=== PATIENT | male | born 1965 | race Caucasian/White ===

== ENCOUNTER 2023-08-20 08:32 | Inpatient (IN) | payer MEDICARE ==
[~2023-08-20] VITALS: Ht 165.1 cm; Wt 70.3 kg
[2023-08-20] MEDS: LEVETIRACETAM (500MG) 1,000 MG in IV NS 0.9% 90 ML IV STA (08:58)
[2023-08-20] MEDS: IV NS 0.9% 1,000 ML BAG IV ONE ×2 (08:58→10:00)
[2023-08-20 09:10] LABS: BASOPHILS # (AUTO) 0.1 K/uL (0.0-0.2); BASOPHILS % (AUTO) 0.6 % (0.0-2.0); EOSINOPHILS # (AUTO) 0.1 K/uL (0.0-0.7); EOSINOPHILS % (AUTO) 1.2 % (0.0-6.0); HEMATOCRIT 51 % (39-51); HEMOGLOBIN 16.2 g/dL (13.5-17.5); LYMPHOCYTES # (AUTO) 4.7 K/uL (0.8-4.8); LYMPHOCYTES % (AUTO) 44.1 % (20.0-44.0); MEAN CORPUSCULAR HEMOGLOBIN 35 PG (26.0-33.0); MEAN CORPUSCULAR HGB CONC 32 g/dl (31.0-36.0); MEAN CORPUSCULAR VOLUME 109 fL (80-96); MONOCYTES % (AUTO) 9.5 % (2.0-12.0); NEUTROPHILS # (AUTO) 4.7 K/uL (1.8-8.9); NEUTROPHILS % (AUTO) 44.6 % (43.0-81.0); PLATELET COUNT (AUTO) 241 K/uL (150-450); RED BLOOD CELL COUNT(AUTO) 4.67 MIL/uL (4.5-6.0); RED CELL DISTRIBUTION WIDTH 14.4 % (11.5-15.0); WHITE BLOOD COUNT (AUTO) 10.6 K/uL (4.3-11.0)
[2023-08-20 09:28] LABS: ALANINE AMINOTRANSFERASE 36 U/L (12-78); ALBUMIN 4.2 g/dL (3.4-5.0); ALCOHOL, BLOOD < 3 mg/dL (0-10); ALKALINE PHOSPHATASE 109 U/L (46-116); ASPARTATE AMINOTRANSFERASE 25 U/L (15-37); BILIRUBIN,DIRECT 0.1 mg/dL (0.0-0.2); BILIRUBIN,TOTAL 0.3 mg/dL (0.2-1.0); CALCIUM, SERUM 9.9 mg/dL (8.5-10.1); CHLORIDE 100 mmol/L (98-107); CREATININE 1.1 mg/dL (0.6-1.3); GLUCOSE 223 mg/dL (74-106); POTASSIUM 3.7 mmol/L (3.5-5.1); SODIUM SERUM 140 mmol/L (136-145); TOTAL PROTEIN, SERUM 7.7 g/dL (6.4-8.2); UREA NITROGEN, BLOOD 11 mg/dL (7-18)
[2023-08-20 09:48] LABS: CARBON DIOXIDE 7 mmol/L (21-32)
[2023-08-20 09:54] LABS: INR 1.06 (0.91-1.10); LACTIC ACID 23.7 mmol/L (0.4-2.0); PARTIAL THROMBOPLASTIN TIME 29.2 SEC (24.3-34.3); PROTHROMBIN TIME 11.2 SECS (9.2-11.1)
[2023-08-20 10:14] LABS: ABG BASE EXCESS -5.7 mmol/L; ABG OXYGEN SATURATION 89.2 % (92.0-98.5); ABG PCO2 36.6 mmHg (35.0-45.0); ABG PH 7.339 (7.350-7.450); ABG PO2 60.4 mmHg (75.0-100.0); ABG TOTAL HEMOGLOBIN 16.1 G/dL (13.5-18.0); MetHb 0.4 % (0.0-1.5); SITE, ABG Right Radial; VENT MODE, BG 3LNC
[2023-08-20] MEDS ORDERED: Z GUARD REMEDY 4 OZ OINT TP PRN (10:30)
[2023-08-20] MEDS ORDERED: MAG HYDROX/AL HYDROX/SIMETH 30 ML UDC PO PRN (10:30)
[2023-08-20] MEDS ORDERED: LORAZEPAM INJ 2 MG/ML VIAL IV PRN (10:30)
[2023-08-20] MEDS ORDERED: ONDANSETRON HCL/PF 4 MG/2 ML VIAL IVP PRN (10:30)
[2023-08-20] MEDS ORDERED: DEXTROSE 50%-WATER 50 ML DISP.SYRIN IV PRN (10:30)
[2023-08-20] MEDS ORDERED: MAGNESIUM HYDROXIDE 30 ML UDC PO PRN (10:30)
[2023-08-20] MEDS: BLOOD SUGAR DIAGNOSTIC 1 EACH STRIP VI SCH (12:00)
[2023-08-20 12:33] LABS: CALCIUM, SERUM 9.1 mg/dL (8.5-10.1); CREATININE 0.9 mg/dL (0.6-1.3)
[2023-08-20] MEDS: IV NS 0.9% 1,000 ML IV PRN (12:57)
[2023-08-20 16:00] VITALS: BP 133/86; TEMP 97.9; O2SAT 96
[2023-08-20 20:00] VITALS: BP 98/64; TEMP 97.9; O2SAT 96
[2023-08-20] MEDS: *INSULIN REGULAR(HUMULIN R)HUM 100 UNIT/ML VIAL SQ PRN (22:42)
[2023-08-21] VITALS: BP 131/87; TEMP 97.9; O2SAT 96
[2023-08-21 04:00] VITALS: BP 138/87; TEMP 98; O2SAT 98
[2023-08-21 07:23] LABS: BASOPHILS % (AUTO) 0.3 % (0.0-2.0); EOSINOPHILS % (AUTO) 0.1 % (0.0-6.0); HEMATOCRIT 41 % (39-51); HEMOGLOBIN 13.7 g/dL (13.5-17.5); LYMPHOCYTES # (AUTO) 1.5 K/uL (0.8-4.8); LYMPHOCYTES % (AUTO) 14.8 % (20.0-44.0); MEAN CORPUSCULAR HEMOGLOBIN 34 PG (26.0-33.0); MEAN CORPUSCULAR HGB CONC 34 g/dl (31.0-36.0); MEAN CORPUSCULAR VOLUME 101 fL (80-96); MONOCYTES # (AUTO) 1.3 K/uL (0.1-1.30); MONOCYTES % (AUTO) 12.9 % (2.0-12.0); NEUTROPHILS # (AUTO) 7.1 K/uL (1.8-8.9); NEUTROPHILS % (AUTO) 71.9 % (43.0-81.0); PLATELET COUNT (AUTO) 204 K/uL (150-450); RED BLOOD CELL COUNT(AUTO) 4.02 MIL/uL (4.5-6.0); RED CELL DISTRIBUTION WIDTH 13.2 % (11.5-15.0); WHITE BLOOD COUNT (AUTO) 9.9 K/uL (4.3-11.0)
[2023-08-21] MEDS: INSULIN REGULAR, HUMAN 100 UNIT/ML 3 ML VIAL SQ PRN (07:52)
[2023-08-21 07:55] LABS: CALCIUM, SERUM 8.9 mg/dL (8.5-10.1); CREATININE 0.9 mg/dL (0.6-1.3); MAGNESIUM 2.3 mg/dL (1.8-2.4); PHOSPHORUS 3.2 mg/dL (2.5-4.9); POTASSIUM 3.9 mmol/L (3.5-5.1)
[2023-08-21 08:00] VITALS: BP 123/85; TEMP 98.6; O2SAT 94
[2023-08-21 12:00] VITALS: BP 123/82; TEMP 98.8; O2SAT 92
[2023-08-21] MEDS ORDERED: LEVETIRACETAM (500MG) 500 MG in IV NS 0.9% 100 ML IV SCH (13:00)
[2023-08-21] MEDS: ASPIRIN 81 MG TAB.CHEW PO SCH (14:34)
[2023-08-21 16:00] VITALS: BP 117/88; TEMP 99.1; O2SAT 92
[2023-08-21] MEDS: PHENYTOIN EXTENDED RELEASE 100 MG CAPSULE PO SCH (17:44)
[2023-08-21 20:00] VITALS: BP 144/92; TEMP 99.7; O2SAT 94
[2023-08-21] MEDS: LEVETIRACETAM (250 MG) 250 MG TABLET PO SCH (21:05)
[2023-08-21] MEDS: ACETAMINOPHEN 325 MG TABLET PO PRN (21:05)
[2023-08-22] VITALS: BP 130/79; TEMP 98.6; O2SAT 95
[2023-08-22 04:00] VITALS: BP 120/74; TEMP 98.6; O2SAT 95
[2023-08-22 07:11] LABS: BASOPHILS % (AUTO) 0.3 % (0.0-2.0); EOSINOPHILS # (AUTO) 0.1 K/uL (0.0-0.7); HEMATOCRIT 36 % (39-51); HEMOGLOBIN 12.3 g/dL (13.5-17.5); LYMPHOCYTES # (AUTO) 1.7 K/uL (0.8-4.8); LYMPHOCYTES % (AUTO) 20.4 % (20.0-44.0); MEAN CORPUSCULAR HEMOGLOBIN 35 PG (26.0-33.0); MEAN CORPUSCULAR HGB CONC 34 g/dl (31.0-36.0); MEAN CORPUSCULAR VOLUME 101 fL (80-96); MONOCYTES # (AUTO) 1.1 K/uL (0.1-1.30); MONOCYTES % (AUTO) 12.9 % (2.0-12.0); NEUTROPHILS # (AUTO) 5.4 K/uL (1.8-8.9); NEUTROPHILS % (AUTO) 65.4 % (43.0-81.0); PLATELET COUNT (AUTO) 174 K/uL (150-450); RED BLOOD CELL COUNT(AUTO) 3.54 MIL/uL (4.5-6.0); RED CELL DISTRIBUTION WIDTH 13.3 % (11.5-15.0); WHITE BLOOD COUNT (AUTO) 8.2 K/uL (4.3-11.0)
[2023-08-22 07:20] LABS: CREATININE 0.9 mg/dL (0.6-1.3); POTASSIUM 3.9 mmol/L (3.5-5.1)
[2023-08-22 08:00] VITALS: BP 130/78; TEMP 98.6; O2SAT 96
[2023-08-22] MEDS: PHENYTOIN EXTENDED RELEASE 100 MG CAPSULE PO SCH (09:02)
[2023-08-22] MEDS ORDERED: phenytoin SODIUM IV 500 MG in IV NS 0.9% 50 ML IV SCH (11:30)
[2023-08-22 12:00] VITALS: BP 144/90; TEMP 98.6; O2SAT 97
[2023-08-22] MEDS: phenytoin SODIUM IV 500 MG in IV NS 0.9% 50 ML IV ONE (12:30)
[2023-08-22 16:00] VITALS: BP 146/96; TEMP 99.7; O2SAT 95
[2023-08-22 20:00] VITALS: BP 143/94; TEMP 98.8; O2SAT 97
[2023-08-23] VITALS: BP 131/94; TEMP 98.4; O2SAT 96
[2023-08-23] MEDS: IV NS 0.9% 1,000 ML IV PRN
[2023-08-23 04:00] VITALS: BP 140/95; TEMP 98.4; O2SAT 98
[2023-08-23 07:02] LABS: BASOPHILS % (AUTO) 0.6 % (0.0-2.0); EOSINOPHILS # (AUTO) 0.2 K/uL (0.0-0.7); EOSINOPHILS % (AUTO) 2.6 % (0.0-6.0); HEMATOCRIT 36 % (39-51); HEMOGLOBIN 12.5 g/dL (13.5-17.5); LYMPHOCYTES # (AUTO) 1.7 K/uL (0.8-4.8); LYMPHOCYTES % (AUTO) 27.3 % (20.0-44.0); MEAN CORPUSCULAR HEMOGLOBIN 35 PG (26.0-33.0); MEAN CORPUSCULAR HGB CONC 34 g/dl (31.0-36.0); MEAN CORPUSCULAR VOLUME 102 fL (80-96); MONOCYTES # (AUTO) 0.8 K/uL (0.1-1.30); NEUTROPHILS # (AUTO) 3.4 K/uL (1.8-8.9); NEUTROPHILS % (AUTO) 56.5 % (43.0-81.0); PLATELET COUNT (AUTO) 166 K/uL (150-450); RED BLOOD CELL COUNT(AUTO) 3.59 MIL/uL (4.5-6.0); RED CELL DISTRIBUTION WIDTH 13.3 % (11.5-15.0)
[2023-08-23 07:28] LABS: CREATININE 0.6 mg/dL (0.6-1.3); POTASSIUM 3.8 mmol/L (3.5-5.1)
[2023-08-23 08:14] VITALS: BP 150/94; TEMP 98.4; O2SAT 96
[2023-08-23 12:12] VITALS: BP 114/81; TEMP 98.4; O2SAT 98
[2023-08-23] MEDS ORDERED: ASPI-1169 PO (12:58)
[2023-08-23] MEDS ORDERED: LEVE250T2 PO (12:58)
[2023-08-23] MEDS ORDERED: PHEN100C4 PO ×2 (12:58)
== END 2023-08-23 13:43 | DRG 100 ==
LOC: ER 09:04 → TELE1 14:17
PROVIDERS: ADMIT Internal Medicine; ATTEND Nurse Practitioner Acute Care
PROC: 05HB33Z Insertion of Infusion Device into Right Basilic Vein, Percutaneous Approach (ICD-10-PCS; principal; 2023-08-20)
PROC: B54MZZA Ultrasonography of Right Upper Extremity Veins, Guidance (ICD-10-PCS; 2023-08-20)
DX: G40.909 Epilepsy, unspecified, not intractable, without status epilepticus (principal); I63.9 Cerebral infarction, unspecified; E87.20 Acidosis, unspecified; E87.1 Hypo-osmolality and hyponatremia; E11.65 Type 2 diabetes mellitus with hyperglycemia; E86.1 Hypovolemia; Z20.822 Contact with and (suspected) exposure to COVID-19; S02.2XXA Fracture of nasal bones, initial encounter for closed fracture; X58.XXXA Exposure to other specified factors, initial encounter; Y93.9 Activity, unspecified; Y92.89 Other specified places as the place of occurrence of the external cause
CPT/HCPCS: 36415; 36600; 70450-TC; 70486-TC; 71045-TC; 72125-TC; 80048-TC; 80076-TC; 80185-TC; 82803-TC; 82962-TC; 83605-TC; 83735-TC; 84100-TC; 84443-TC; 84484-TC; 85025-TC; 85730-TC; 87040-TC; 87081-TC; A4223; G0378; G0480; J1165; J1815; J1953; J7030

== ENCOUNTER 2024-04-21 14:32 | Emergency (ER) | payer MEDICARE, MEDICAID ==
[~2024-04-21] VITALS: Ht 160 cm; Wt 70.3 kg
[~2024-04-21 14:32] MED LIST: ASPI-1169 PO; LEVE250T2 PO; PHEN100C4 PO
[2024-04-21 14:39] VITALS: BP 137/101; TEMP 97.9
[2024-04-21 18:05] VITALS: O2SAT 99
== END 2024-04-21 18:06 | disposition home or self-care (01) ==
LOC: ER 14:35
DX: S61.210A Laceration without foreign body of right index finger without damage to nail, initial encounter (principal); Z86.69 Personal history of other diseases of the nervous system and sense organs; W26.0XXA Contact with knife, initial encounter; Y93.89 Activity, other specified; Y92.098 Other place in other non-institutional residence as the place of occurrence of the external cause; Y99.8 Other external cause status
CPT/HCPCS: 99283; 12001; A6403

== ENCOUNTER 2025-01-11 16:44 | Emergency (ER) | payer MEDICARE ==
[2025-01-12] MEDS ORDERED: LEVE250T2 PO (13:16)
[2025-01-12] MEDS ORDERED: PHEN100C4 PO ×2 (13:16)
== END 2025-01-11 17:10 | disposition left against medical advice (07) ==
LOC: ER 16:51
DX: R56.9 Unspecified convulsions (principal); Z53.21 Procedure and treatment not carried out due to patient leaving prior to being seen by health care provider

== ENCOUNTER 2025-01-12 12:24 | Emergency (ER) | payer MEDICARE ==
[~2025-01-12] VITALS: Ht 162.6 cm; Wt 78.0 kg
[2025-01-12 12:29] VITALS: TEMP 98.2
[2025-01-12] MEDS ORDERED: PHEN100C4 PO ×2 (13:16)
[2025-01-12] MEDS ORDERED: LEVE250T2 PO (13:16)
[2025-01-12 13:48] VITALS: BP 120/85; O2SAT 96
== END 2025-01-12 13:43 | disposition home or self-care (01) ==
LOC: ER 12:24
DX: G40.909 Epilepsy, unspecified, not intractable, without status epilepticus (principal); I10 Essential (primary) hypertension; F19.10 Other psychoactive substance abuse, uncomplicated; Z79.82 Long term (current) use of aspirin; Z79.899 Other long term (current) drug therapy; Z86.59 Personal history of other mental and behavioral disorders; Z76.0 Encounter for issue of repeat prescription